=== PATIENT | male | born 1985 | race African-American/Black ===

== ENCOUNTER 2016-12-30 12:02 | Emergency (ER) | payer OTHER ==
[~2016-12-30] VITALS: Ht 188 cm; Wt 120.2 kg
[~2016-12-30 12:02] MED LIST: CYCLOBENZAPRINE10 MG ORAL; IBUPROFEN800 MG ORAL; NAPROXEN500 M1 ORAL; NKM
[2016-12-30 12:18] VITALS: BP 129/85
--- NOTE | 2016-12-30 12:31 | Emergency Room Report ---
History of Present Illness General Chief Complaint: Upper Respiratory Illness Source: Patient Present Illness HPI Patient present with complaints of sore throat Pain with swallowing 5/10 Questionable low-grade fever Denies any posterior neck pain denies any photophobia Denies any chest pain or shortness of breath denies any dysuria frequency Denies any vomiting Allergies: Coded Allergies: IBUPROFEN (Verified Allergy, Unknown, 12/30/16) Patient History Past Medical History: see triage record Pertinent Family History: none Reviewed Nursing Documentation: PMH: Agreed, PSxH: Agreed Nursing Documentation-PMH Past Medical History: No Stated History Review of Systems All Other Systems: negative except mentioned in HPI Physical Exam Vital Signs Date Time Temp Pulse Resp B/P Pulse Ox O2 Delivery O2 Flow Rate FiO2 12/30/16 12:09 97.9 87 18 129/85 97 Room Air Sp02 EP Interpretation: reviewed, normal General Appearance: well appearing, no apparent distress Head: normocephalic, atraumatic Eyes: bilateral eye EOMI, bilateral eye PERRL ENT: hearing grossly normal, TMs + canals normal, uvula midline, pharyngeal erythema Neck: full range of motion, supple, no meningismus, no bony tend Respiratory: lungs clear, normal breath sounds, no rhonchi, no respiratory distress, no retraction, no accessory muscle use Cardiovascular #1: normal peripheral pulses, regular rate, rhythm, no edema, no gallop, no JVD, no murmur Gastrointestinal: normal bowel sounds, non tender, soft, no mass, no organomegaly, non-distended, no guarding, no hernia, no pulsatile mass, no rebound Musculoskeletal: normal inspection Neurologic: oriented x3, responsive, quality control representative III-XII nml as tested, motor strength/ tone normal, sensory intact Psychiatric: mood/affect normal Skin: normal color, no rash, warm/dry, palpation normal Lymphatic: normal inspection, no adenopathy Medical Decision Making Diagnostic Impression: Primary Impression: Pharyngitis ER Course Multiple officials considered Patient's medical evaluation the clinical exam appears to be in line with pharyngitis patient does not appear septic or toxic in a stable for initial conservative outpatient trial Last Vital Signs Date Time Temp Pulse Resp B/P Pulse Ox O2 Delivery O2 Flow Rate FiO2 12/30/16 12:18 97.9 18 129/85 97 Room Air 12/30/16 12:18 87 Status: unchanged Disposition: HOME, SELF-CARE Condition: Stable NISH LANDAVERDE D.O. December 30, 2016 12:31
[2016-12-30] MEDS ORDERED: AMOXICILLIN500 MG ORAL (12:33)
[2016-12-30] MEDS ORDERED: TYLENOL325 MG ORAL (12:33)
[2016-12-30 12:41] VITALS: BP 129/85
== END 2016-12-30 12:41 | disposition home or self-care (01) ==
LOC: EMR 12:30
DX: J02.9 Acute pharyngitis, unspecified (principal); Z88.6 Allergy status to analgesic agent
CPT/HCPCS: 99282

== ENCOUNTER 2017-01-09 11:37 | Emergency (ER) | payer OTHER ==
[~2017-01-09] VITALS: Ht 188 cm; Wt 122.5 kg
[~2017-01-09 11:37] MED LIST changes: +AMOXICILLIN500 MG ORAL; +TYLENOL325 MG ORAL
[2017-01-09 12:56] LABS: EOSINOPHILS % (AUTO) 4.6 % (0.0-3.0); LYMPHOCYTES % (AUTO) 39.9 % (20.0-45.0); MEAN CORPUSCULAR HEMOGLOBIN 32.3 PG (27.0-31.0); MEAN CORPUSCULAR HGB CONC 35.3 G/DL (32.0-36.0); MEAN CORPUSCULAR VOLUME 92 FL (80-99); MEAN PLATELET VOLUME 6.5 FL (6.5-10.1); MONOCYTES % (AUTO) 7.5 % (1.0-10.0); PLATELET COUNT 325 K/UL (150-450); RED BLOOD COUNT 4.85 M/UL (4.70-6.10); RED CELL DISTRIBUTION WIDTH 11.4 % (11.6-14.8); WHITE BLOOD COUNT 5.9 K/UL (4.8-10.8)
[2017-01-09 12:59] LABS: ALANINE AMINOTRANSFERASE 23 U/L (3-41); ALBUMIN/GLOBULIN RATIO 1.3 (1.0-2.7); AMYLASE 42 U/L (10-110); ANION GAP 16 (5-15); APPEARANCE,URINE CLEAR; ASPARTATE AMINO TRANSFERASE 19 U/L (5-40); CALCIUM 10.1 mg/dL (8.6-10.2); CARBON DIOXIDE 27 mEQ/L (20-30); CHLORIDE 94 mEQ/L (98-107); GLOMERULAR FILTRATION RATE > 60 mL/min (>60); HEMOLYSIS 14; KETONES,URINE NEGATIVE (NEGATIVE); LEUKOCYTE ESTERASE ,URINE NEGATIVE (NEGATIVE); LIPASE 23 U/L (< 60); NITRITE,URINE NEGATIVE (NEGATIVE); PH,URINE 5 (4.5-8.0); POTASSIUM 4.2 mEQ/L (3.4-4.9); PROTEIN,URINE NEGATIVE (NEGATIVE); SODIUM 137 mEQ/L (135-145); TOTAL PROTEIN 8.3 g/dL (6.6-8.7); UROBILINOGEN,URINE NORMAL MG/DL (0.0-1.0)
[2017-01-09] MEDS ORDERED: Morphine Sulfate 4mg/ml Inj IVP ONE (13:45)
[2017-01-09 13:50] VITALS: BP 128/68
[2017-01-09] MEDS ORDERED: TYLENOL EXTRA500 MG ORAL (13:55)
[2017-01-09] MEDS ORDERED: ROBAXIN-750750 MG PO (13:55)
[2017-01-09 14:00] VITALS: BP 128/68
--- NOTE | 2017-01-11 10:51 | Diagnostic Imaging Report ---
Indication: Right upper quadrant pain Technique: Ibarra-scale and duplex images of the upper abdomen were obtained Comparison: None Findings: Gallbladder is contracted, severely limiting assessment. Patient was not n.p.o. No definite stones, wall thickening, or pericholecystic fluid Sonographic Lopez's sign is negative. Common bile duct measures 5 mm in diameter. No intrahepatic biliary ductal dilatation. Liver demonstrates normal echogenicity, no focal abnormality. Portal vein and hepatic veins are patent. Pancreas is unremarkable. Spleen is unremarkable. Left kidney measures 11.5 cm in length. Right kidney measures 11.4 cm length. Both kidneys demonstrate normal echogenicity. There is no hydronephrosis. There is a 5 mm cyst in the cortex of the left lower pole . Non-aneurysmal abdominal aorta . Impression: Limited exam, due to contraction of the gallbladder. No gross gallstones or dilated ducts No other significant abnormality Incidental finding tiny left renal cyst
--- NOTE | 2017-01-11 13:51 | Emergency Room Report ---
History of Present Illness General Chief Complaint: Back Pain-No Injury Source: Patient Present Illness HPI The patient is a 31-year-old male presenting for right shoulder pain. The patient has been seen for the same complaint a couple times in the past without any known provoking factors. He denies any increased physical activity or injury. He states pain is an 8/10 dull ache to the right shoulder. He also feels pain of the RUQ and admits to nausea. It is worse with shoulder movement. he denies any numbness or tingling. He denies any other symptoms including F , chills, [place], CP, SOB, rash Allergies: Coded Allergies: IBUPROFEN (Verified Allergy, Unknown, 12/30/16) Patient History Past Medical History: see triage record Pertinent Family History: none Reviewed Nursing Documentation: PMH: Agreed, PSxH: Agreed Nursing Documentation-PMH Past Medical History: No Stated History Review of Systems All Other Systems: negative except mentioned in HPI Physical Exam Vital Signs Date Time Temp Pulse Resp B/P Pulse Ox O2 Delivery O2 Flow Rate FiO2 01/09/17 11:47 98.4 79 16 132/70 97 Room Air Sp02 EP Interpretation: reviewed, normal General Appearance: no apparent distress, alert, GCS 15, non-toxic Head: normocephalic, atraumatic Eyes: bilateral eye PERRL, bilateral eye normal inspection ENT: hearing grossly normal, normal pharynx, no angioedema, normal voice Neck: full range of motion, supple/symm/no masses Respiratory: chest non-tender, lungs clear, normal breath sounds, speaking full sentences Cardiovascular #1: regular rate, rhythm, no edema Gastrointestinal: normal bowel sounds, no mass, no guarding, tenderness - RUQ Musculoskeletal: normal range of motion, tender - TTP over the R upper back Neurologic: alert, oriented x3, responsive, motor strength/tone normal, sensory intact, normal gait, speech normal Psychiatric: judgement/insight normal, memory normal, mood/affect normal, no suicidal/homicidal ideation Skin: normal color, no rash, warm/dry, well hydrated Medical Decision Making PA Attestation Dr. Li is my supervising physician. Patient management was discussed with my supervising physician Diagnostic Impression: Primary Impression: Shoulder pain, right Qualified Codes: M25.511 - Pain in right shoulder ER Course The patient is a 31-year-old male presenting for right shoulder pain and abd pain Differential diagnoses considered include but not limited to cholecystitis, cholelithiasis, gastritis, pancreatitis, appendicitis, muscle strain/spasm, among others PE: vitals WNL. NAD Abd is soft. There is RUQ TTP. No mass. Soft. Normal BS. No discoloration There is TTP over the R trapezius. Full AROM of shoulder. No deformity Otherwise exam unremarkable All blood work unremarkable. Abdominal ultrasound to rule out gallbladder disease is unremarkable. The patient is given IV fluids, Zofran, and pain medication and is feeling better. he will be discharged home. ER precautions given Labs Test 01/09/17 12:26 White Blood Count 5.9 K/UL (4.8-10.8) Red Blood Count 4.85 M/UL (4.70-6.10) Hemoglobin 15.7 G/DL (14.2-18.0) Hematocrit 44.4 % (42.0-52.0) Mean Corpuscular Volume 92 FL (80-99) Mean Corpuscular Hemoglobin 32.3 PG (27.0-31.0) Mean Corpuscular Hemoglobin Concent 35.3 G/DL (32.0-36.0) Red Cell Distribution Width 11.4 % (11.6-14.8) Platelet Count 325 K/UL (150-450) Mean Platelet Volume 6.5 FL (6.5-10.1) Neutrophils (%) (Auto) 47.0 % (45.0-75.0) Lymphocytes (%) (Auto) 39.9 % (20.0-45.0) Monocytes (%) (Auto) 7.5 % (1.0-10.0) Eosinophils (%) (Auto) 4.6 % (0.0-3.0) Basophils (%) (Auto) 1.0 % (0.0-2.0) Urine Color Pale yellow Urine Appearance Clear Urine pH 5 (4.5-8.0) Urine Specific Protivin 1.020 (1.005-1.035) Urine Protein Negative (NEGATIVE) Urine Glucose (UA) Negative (NEGATIVE) Urine Ketones Negative (NEGATIVE) Urine Occult Blood Negative (NEGATIVE) Urine Nitrite Negative (NEGATIVE) Urine Bilirubin Negative (NEGATIVE) Urine Urobilinogen Normal MG/DL (0.0-1.0) Urine Leukocyte Esterase Negative (NEGATIVE) Sodium Level 137 mEQ/L (135-145) Potassium Level 4.2 mEQ/L (3.4-4.9) Chloride Level 94 mEQ/L (98-107) Carbon Dioxide Level 27 mEQ/L (20-30) Anion Gap 16 (5-15) Blood Urea Nitrogen 16 mg/dL (7-23) Creatinine 1.0 mg/dL (0.7-1.2) Estimat Glomerular Filtration Rate > 60 mL/min (>60) Glucose Level 87 mg/dL (74-106) Calcium Level 10.1 mg/dL (8.6-10.2) Total Bilirubin 0.8 mg/dL (0.0-1.2) Aspartate Amino Transf (AST/SGOT) 19 U/L (5-40) Alanine Aminotransferase (ALT/SGPT) 23 U/L (3-41) Alkaline Phosphatase 69 U/L (40-129) Total Protein 8.3 g/dL (6.6-8.7) Albumin 4.7 g/dL (3.5-5.2) Globulin 3.6 g/dL Albumin/Globulin Ratio 1.3 (1.0-2.7) Amylase Level 42 U/L (10-110) Lipase 23 U/L (< 60) Lab Results Impression CBC, CMP, Amylase, Lipase WNL. UA unremarkable CT/MRI/US Diagnostic Results CT/MRI/US Diagnostic Results : Imaging Test Ordered: ABD US Impression Unremarkable Last Vital Signs Date Time Temp Pulse Resp B/P Pulse Ox O2 Delivery O2 Flow Rate FiO2 01/09/17 14:00 98.4 82 18 128/68 98 Room Air Status: improved Disposition: HOME, SELF-CARE Condition: Improved Scripts Acetaminophen* (TYLENOL EXTRA STRENGTH*) 500 Mg Tablet 500 MG ORAL Q8H Y for Prn Headache/Temp > 101, #30 TAB 0 Refills Prov: TERZIAN,ELADIO P.A. 01/09/17 Methocarbamol* (ROBAXIN-750*) 750 Mg Tablet 750 MG PO TID, #21 TAB 0 Refills Prov: TERZIAN,ELADIO P.A. 01/09/17 Referrals: [facility],REFERRING (PCP) Patient Instructions: Shoulder Pain Additional Instructions: I discussed my findings with the patient. All questions and concerns have been answered. Treatment and medication compliance have been addressed. I advised the patient that they need to follow up with PMD in 3-5 days. Return to ED if symptoms worsen, new symptoms arise, or if needed for any reason. Patient verbalized understanding of discharge instructions. ELADIO BUCKLEY January 11, 2017 13:51
== END 2017-01-09 14:00 | disposition home or self-care (01) ==
LOC: EMR 12:15
DX: M25.511 Pain in right shoulder (principal); R10.11 Right upper quadrant pain; Z88.6 Allergy status to analgesic agent; R11.0 Nausea
CPT/HCPCS: 36415; 76700; 80053; 81003; 82150; 83690; 85025; 96374; 96375; 99284; J2270; J2405